=== PATIENT | male | born 1995 | race Caucasian/White ===

== ENCOUNTER 2018-07-14 11:16 | Emergency (ER) | payer MEDICAID, SELFPAY ==
[2018-07-14 11:18] VITALS: BP 110/69; PULSE 85; RESP 17; TEMP 36.9; O2SAT 94; BMI 30.3
--- NOTE | 2018-07-14 12:06 | ED.VISSUMM ---
- ER Visit Summary Date of Service: 07/14/18 Chief Complaint: [] Suicidal ideation, history of bilateral lung transplant about 5 years ago at [facility] History of Present Illness: The patient is a 23 M [] is presenting complaining with family of suicidal ideation he wants to jump off a bridge or cut his throat. 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 He has a long history of depression and PTSD and suicidal thoughts he recently stopped taking all of his antidepressive meds because they were not helping, he seen by local counselors for his psychiatric disorder, and he seen by [facility] transplant pulmonary service. The [facility] transplant pulmonary service is content with his status The patient had persistent expressions of suicidal ideation today related to being sensing self worthlessness no joint his life consisting of wanting to either jump off a bridge cut his throat and otherwise harm himself and he was brought to the hospital for evaluation, he has a history of self-inflicted wounds he has not inflicted anything on himself, he has not taken any medications, he has no history of drug or alcohol use He has no complaints other than suicidal ideation Physical Examination: [] His vital signs are within normal range she is in no distress the anterior chest incisions are intact his heart tones are normal the lungs sound clear the abdomen soft nontender he is awake and alert he is moving all 4 extremities he has no psychomotor agitation other than to insist that he still feels suicidal there is no delirium or delusions he is cooperative he does feel anxious, he also reports per family that he has difficulty sleeping recently Family also reports he has an explosive violent tendency when he gets very anxious and nervous but he has not manifested that behavior in the ED yet Test Results: [] Emergency Department Course and Treatment: [] In all the above screening labs will be obtained Ativan 2 mg p.o. to help him relax and he will be seen by mental health services for further management Treatment Plan: [] Disposition: [] Impression: [] This note was generated with [employer] software. It may contain incorrect words, spelling, and punctuation that were not noted in review of the chart prior to signing ED Disposition - Plan for ED Patient: Chief Complaint: Suicidal Referrals: Tha Vogt MD [Primary Care Provider] -
--- NOTE | 2018-07-14 12:09 | ED.DCSUM_ITS ---
- ER Visit Summary Date of Service: 07/14/18 Chief Complaint: [] Suicidal ideation, history of bilateral lung transplant about 5 years ago at [facility] History of Present Illness: The patient is a 23 M [] is presenting complaining with family of suicidal ideation he wants to jump off a bridge or cut his throat. 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 He has a long history of depression and PTSD and suicidal thoughts he recently stopped taking all of his antidepressive meds because they were not helping, he seen by local counselors for his psychiatric disorder, and he seen by [facility] transplant pulmonary service. The [facility] transplant pulmonary service is content with his status The patient had persistent expressions of suicidal ideation today related to being sensing self worthlessness no joint his life consisting of wanting to either jump off a bridge cut his throat and otherwise harm himself and he was brought to the hospital for evaluation, he has a history of self-inflicted wounds he has not inflicted anything on himself, he has not taken any medications, he has no history of drug or alcohol use He has no complaints other than suicidal ideation Physical Examination: [] His vital signs are within normal range she is in no distress the anterior chest incisions are intact his heart tones are normal the lungs sound clear the abdomen soft nontender he is awake and alert he is moving all 4 extremities he has no psychomotor agitation other than to insist that he still feels suicidal there is no delirium or delusions he is cooperative he does feel anxious, he also reports per family that he has difficulty sleeping recently Family also reports he has an explosive violent tendency when he gets very anxious and nervous but he has not manifested that behavior in the ED yet Test Results: [] Emergency Department Course and Treatment: [] In all the above screening labs will be obtained Ativan 2 mg p.o. to help him relax and he will be seen by mental health services for further management Treatment Plan: [] Disposition: [] Impression: [] This note was generated with [employer] software. It may contain incorrect words, spelling, and punctuation that were not noted in review of the chart prior to signing ED Disposition - Plan for ED Patient: Chief Complaint: Suicidal Referrals: Tha Vogt MD [Primary Care Provider] -
[2018-07-14] MEDS: LORazepam 1 MG Tablet 2 MG PO (12:33)
[2018-07-14 12:36] VITALS: BP 133/81; PULSE 89; RESP 18; O2SAT 97
[2018-07-14 12:57] LABS: Absolute Lymphocyte Count 1.94 X10^3/ul (0.83-4.51); Absolute Neutrophil Count 6.8 X10^3/uL (2.0-7.7); Basophil# 0.06 X10^3/uL; Basophil% 0.6 % (0-1); Eosinophil# 0.88 X10^3/uL; Eosinophils% 8.3 % (0-5); Hematocrit 47.7 % (40-54); Hemoglobin 15.8 g/dl (13.0-16.5); Lymphocyte # 1.94 X10^3/ul (4.0); Lymphocyte % 18.2 % (19-41); Mean Corp Hgb Conc 33.1 g/gl (32-36); Mean Corpuscular Hgb 28.4 pg (27.0-32.0); Mean Corpuscular Volume 85.6 fL (80-94); Mean Platelet Vol. 9.2 fl (6.2-12.0); Monocyte# 0.97 X10^3/uL; Monocyte% 9.1 % (0-10); Neutrophil % 63.7 % (47-70); Platelet Count 350 K/mm3 (150-450); RBC Distribution Width CV 12.5 % (11.6-14.6); RBC Distribution Width SD 38.9 fl (35.1-43.9); Red Blood Count 5.57 M/mm3 (4.6-6.2); White Blood Count 10.7 K/mm3 (4.4-11.0)
[2018-07-14 12:58] LABS: POSITIVE COUNT NO; POSITIVE DIFFERENTIAL NO; POSITIVE MORPHOLOGY NO
[2018-07-14 13:01] LABS: Anion Gap 7 (5-15); BUN 8 mg/dL (7-18); BUN/Creat Ratio 8.4 RATIO (10-20); Calcium,Total 9.2 mg/dL (8.5-10.1); Chloride 102 mmol/L (98-107); Creatinine, Serum 0.96 mg/dL (0.70-1.30); EST Glomerular Filtration Rate 102 mL/min (>60); Est Glom Filt Rate - Afr Amer 124 mL/min (>60); Estimated Creatinine Clearance 110.93 ml/min; Glucose 91 mg/dL (74-106); Sodium Level 139 mmol/L (136-145)
[2018-07-14 13:04] LABS: Amphetamine Urine VISTA NEGATIVE (<1000 ng/mL); Barbiturate Urine VISTA NEGATIVE (< 200 ng/mL); Benzodiazepine Urine VISTA NEGATIVE (< 200 ng/mL); Cocaine Urine VISTA NEGATIVE (< 300 ng/mL); Ecstacy Urine VISTA NEGATIVE (< 500 ng/mL); Methadone Urine VISTA NEGATIVE (< 300 ng/mL); PCP Urine VISTA NEGATIVE (< 25 ng/mL); THC Urine VISTA NEGATIVE (< 50 ng/mL); Vista UDS pH Range 6
[2018-07-14 14:05] LABS: Alcohol, Blood (Medical)-Serum < 3.0 mg/dL
--- NOTE | 2018-07-14 14:42 | ED.RN ---
1:1 sitter placed at bedside starting at 1200. Pt family and girlfriend at bedside. Denies needs. will continue to monitor.
[2018-07-14 15:28] VITALS: BP 121/81; PULSE 90; RESP 18; O2SAT 97
--- NOTE | 2018-07-14 18:01 | ED.DEP ---
ED Disposition - Plan for ED Patient: Chief Complaint: Suicidal Instructions: ED Depression Referrals: Tha Vogt MD [Primary Care Provider] - Counseling,Center [GROUP OF PHYSICIANS] -
[2018-07-14] MEDS: LORazepam 1 MG Tablet PO (18:50)
[2018-07-14] MEDS: Ziprasidone IM 20 MG/ML VIAL 10 MG IM (19:38)
--- NOTE | 2018-07-14 19:40 | ED.RN ---
PT AGREED TO TAKE GEODON TO HELP HIM RELAX AND DECREASE ANXIETY
[2018-07-14 20:25] VITALS: BP 121/83; PULSE 77; RESP 16; O2SAT 98
--- NOTE | 2018-07-14 20:27 | NURSING ---
PT VERBALLY DE-ESCALATED IN ROOM WITHOUT NEED FOR RESTRAINTS. GIRLFRIEND AT BEDSIDE. MEDICATION GIVEN TO ASSIST PATIENT IN CALMING HIMSELF DOWN. PT AGREED TO MEDICATION. PT IS RESTING IN BED EYES CLOSED. GIRLFRIEND AND SITTER AT BEDSIDE. Hayden LEAVITT RN.
--- NOTE | 2018-07-14 21:38 | ED.RN ---
CALLED TO TRANSPORT THIS PT TO [facility], UNABLE TO SECRUE A SQUAD FOR TRANSPORT TILL MORNING
[2018-07-14 22:50] VITALS: BP 113/75; PULSE 90; RESP 16; O2SAT 95
[2018-07-14 23:00] VITALS: RESP 17; O2SAT 99
[2018-07-15] VITALS (8 sets, daily range): BP systolic 125–149; BP diastolic 80–92; PULSE 65–67; RESP 13–17; O2SAT 95–99
--- NOTE | 2018-07-15 | ED.RN ---
PATIENT APPEARS TO BE SLEEPING AT THIS TIME. SITTER AT BEDSIDE CONTINUOUSLY. SIGNIFICANT OTHER AT BEDSIDE.
[2018-07-15] MEDS: predniSONE 5 MG Tablet PO (00:56)
[2018-07-15] MEDS: MYCOPHENOLATE SODIUM 180 MG TABLET.DR 540 MG PO (00:57)
--- NOTE | 2018-07-15 01:19 | ED.RN ---
PATIENT APPEARED TO BE SLEEPING, BUT THIS NURSE AWOKE PATIENT TO TAKE VITALS. PT COOPERATED EASILY. PT THEN AGREED TO TAKE MEDICATION AND TOOK THEM WITHOUT DIFFICULTY. PT ALSO OFFERED WATER TO DRINK. PT APPEARED TO GO BACK TO SLEEP. SIGNIFICANT OTHER REMAINS AT BEDSIDE AND PLANS TO DO SO ALL NIGHT. MOTHER IS IN WAITING ROOM AND PLANS TO STAY THERE ALL NIGHT. RN AT BEDSIDE TO CONTINUOUSLY OBSERVE PATIENT.
--- NOTE | 2018-07-15 02:20 | ED.RN ---
PATIENT APPEARS TO BE SLEEPING WITHOUT DISTRESS. PT CONTINUES TO BE OBSERVED CONTINUOUSLY BY RN/SITTER AT BEDSIDE. FAMILY AND SIGNIFICANT OTHER AT BEDSIDE.
== END 2018-07-15 08:30 ==
LOC: ED 13:42
PROVIDERS: Emergency Provider Emergency Medicine; Family Provider Family Medicine; PCP Family Medicine
DX: R45.851 Suicidal ideations (principal); Z94.2 Lung transplant status; F32.9 Major depressive disorder, single episode, unspecified; F43.10 Post-traumatic stress disorder, unspecified; Z79.899 Other long term (current) drug therapy
CPT/HCPCS: 36415; 80048; 80307; 80320; 85025; 96372; 99285; G0480; J3486

== ENCOUNTER → 2019-03-03 13:03 | Outpatient (CLI) | payer MEDICAID, SELFPAY ==
[2019-03-03 07:29] VITALS: BMI 32.8
--- NOTE | 2019-03-03 07:30 | VAS_PTH ---
PATIENT: QUINN MEDINA LOC: [facility] U#:[id number] AGE/SX: 30/M ROOM: RE03/03/[address]: Dr. Ken Ruiz MD : 1995 BED: DIS: SPEC #: [id number] RECD: 03/03/19 12:07 STATUS: ANDRES LUKAS #: [id number] AMBIKA: 03/03/19 07:[address]: Ken Ruiz DEPT: SURGICAL PATHOLOGY RECD BY: Delmer Munoz ENTERED: 03/03/19 13:30 SP TYPE: VAS OTHR DR: Dr. Tha Vogt MD Tissues: A - Vas deferens, NOS B - Vas deferens, NOS Procedures: Surgery Specimen Level II HEADER OPERATION: Bilateral partial vasectomy PRE-OP DIAGNOSIS: Sterilization TISSUE SUBMITTED: A - Right partial vas deferens, B - Left partial vas deferens MICROSCOPIC DIAGNOSIS A. Right partial vas deferens, segmental vasectomy: Complete cross-section of vas deferens with no pathologic change. B. Left partial vas deferens, segmental vasectomy: Complete cross-section of vas deferens with no pathologic change. AM:moises 03/04/19 MICROSCOPIC DESCRIPTION Slides are reviewed. GROSS DESCRIPTION A - Received is one container designated right vas deferens. The specimen consists of a tubular segment of carrion soft tissue measuring 1.3 cm in length and 0.3 cm in maximum diameter. The specimen is serially sectioned and totally submitted in one cassette. The specimen will be sectioned at the time of embedding. B - Received is one container designated left vas deferens. The specimen consists of a tubular segment of carrion soft tissue measuring 1.3 cm in length and 0.3 cm in maximum diameter. The specimen is serially sectioned and totally submitted in one cassette. The specimen will be sectioned at the time of embedding. / SJ:moises 03/03/19 TC:4 CPT: 04455 x2
== END ==
PROVIDERS: Family Provider Family Medicine; PCP Family Medicine; Referring Provider Surgery; Visit Provider Surgery
DX: Z30.2 Encounter for sterilization (principal)
CPT/HCPCS: 88302

== ENCOUNTER → 2019-04-29 12:35 | Outpatient (CLI) | payer MEDICAID, SELFPAY ==
[2019-03-03 07:29] VITALS: BMI 32.8
[2019-04-30 13:50] LABS: Semen Analysis Post Vas ABSENT
== END ==
PROVIDERS: Family Provider Family Medicine; PCP Family Medicine; Referring Provider Surgery; Visit Provider Surgery
DX: Z30.2 Encounter for sterilization (principal)
CPT/HCPCS: 89321

== ENCOUNTER 2019-07-03 18:33 | Emergency (ER) | payer MEDICAID, SELFPAY ==
[2019-03-03 07:29] VITALS: BMI 32.8
[2019-07-03 18:35] VITALS: BP 126/90; PULSE 98; RESP 16; TEMP 36.8; O2SAT 95; BMI 32.4
--- NOTE | 2019-07-03 19:13 | EKG12_ITS ---
Test Reason : MENTAL HEALTH Blood Pressure : / mmHG Vent. Rate : 096 BPM Atrial Rate : 096 BPM P-R Int : 188 ms QRS Dur : 100 ms QT Int : 366 ms P-R-T Axes : 054 067 077 degrees QTc Int : 462 ms Normal sinus rhythm Early repolarization Normal ECG Confirmed by MEJIA PERALTA, ARCHIE ([id number]), desk editor CARROLL FRANCISCO ([id number]) on 07/14/2019 9:20:32 A M Referred By: NICHELLE Confirmed By:LUIS MIGUEL BA MD
--- NOTE | 2019-07-03 19:15 | ED.VIS.GEN ---
History of Present Illness Chief Complaint: Suicidal Informant: Patient Onset: Days Narrative: Patient is a 24-year-old male history of bipolar disorder and double lung transplant presenting with suicidal ideations. Patient states for the past few weeks he has had thoughts of wanting to hang himself. He states he has a wire that he was to use but he is concerned that it will not hold his body weight. Today he was in an argument with his girlfriend and then with his mother. He states that pushed him over the edge and then he punched a wall 4 times with his right hand. He states he feels more angry and still wants to kill himself. Any history of suicide attempts. He does have a history of cutting. He notes that he is on Lamictal but not sure if it is the right dose. He states he was an inpatient psych about a year ago. Patient also states he has a 6-month-old daughter at home. He states he does not want to hurt her but is afraid he might. Patient denies any physical complaints at this time. Past Medical History - Allergies and Home Meds Allergies/Adverse Reactions: Allergies No Known Allergies Allergy (Verified 03/25/19 07:51) Primary Care Physician: Tha Vogt MD [Primary Care Provider] - Past Medical History: - - Bipolar disorder Surgical History: - - Bilateral lung transplant Lives: Spouse/ Significant Other Smoking Status: Current every day smoker Review of Systems All systems negative except as indicated Psych: Reports: Depression, Suicidal thoughts, Suicidal ideations Physical Exam Vital Signs/Narrative: Vital Signs Temp Pulse Resp BP Pulse Ox 07/03/19 18:35 98.2 F 98 16 126/90 H 95 Inital Vital Signs reviewed: Yes General: Well nourished, Well developed, No Acute Distress, - - Patient tearful and pacing around the room Head: Normocephalic, Atraumatic Eyes: Perrl, EOMI ENT: Moist mucous membranes, No rhinorrhea Neck: Supple, Nontender Cardiovascular: Regular rate, Regular rhythm, No murmurs Respiratory: No distress, CTA bilaterally, Chest nontender Abdomen: Soft, Nontender, Nondistended, Normal bowel sounds Back: Nontender, Normal Inspection Extremities: Nontender, No edema, - - Erythema over the MCPs of the right hand but no associated deformity or bony tenderness Skin: Normal color, No rash Neurological: Alert, Oriented x3, Cranial nerves II-XII grossly intact, Normal Strength, Normal Sensation Psychological: Depressed, Tearful, Agitated, - - Admits to suicidal ideations with plan Diagnostic/Tx/Re-eval Laboratory Results - last 24 hr 07/03/19 07/03/19 07/03/19 19:35 19:35 19:35 WBC 7.5 RBC 5.27 Hgb 14.6 Hct 45.0 MCV 85.4 MCH 27.7 MCHC 32.4 RDW Std Deviation 37.2 RDW Coeff of Elijah 12.0 Plt Count 349 MPV 8.6 Immature Gran % (Auto) 0.400 Neut % (Auto) 62.0 Lymph % (Auto) 21.0 [place] % (Auto) 12.2 H Eos % (Auto) 3.6 Baso % (Auto) 0.8 Absolute Neuts (auto) 4.6 Absolute Lymphs (auto) 1.57 Nucleated RBC % 0 Sodium 143 Potassium 3.9 Chloride 107 Carbon Dioxide 28.0 Anion Gap 8 BUN 10 Creatinine 1.15 Estim Creat Clear Calc 88.61 Est GFR (MDRD) Af Amer 100 Est GFR (MDRD) Non-Af 82 BUN/Creatinine Ratio 8.7 L Glucose 96 Calcium 8.5 Urine Opiates Screen Urine Methadone Screen Ur Barbiturates Screen Ur Phencyclidine Scrn Ur Amphetamines Screen U Methamphetamin-MDMA U Benzodiazepines Scrn Urine Cocaine Screen U Cannabinoids Screen Ur Drug Screen Comment Ethyl Alcohol < 3.0 07/03/19 20:00 WBC RBC Hgb Hct MCV MCH MCHC RDW Std Deviation RDW Coeff of Elijah Plt Count MPV Immature Gran % (Auto) Neut % (Auto) Lymph % (Auto) [place] % (Auto) Eos % (Auto) Baso % (Auto) Absolute Neuts (auto) Absolute Lymphs (auto) Nucleated RBC % Sodium Potassium Chloride Carbon Dioxide Anion Gap BUN Creatinine Estim Creat Clear Calc Est GFR (MDRD) Af Amer Est GFR (MDRD) Non-Af BUN/Creatinine Ratio Glucose Calcium Urine Opiates Screen NEGATIVE Urine Methadone Screen NEGATIVE Ur Barbiturates Screen NEGATIVE Ur Phencyclidine Scrn NEGATIVE Ur Amphetamines Screen NEGATIVE U Methamphetamin-MDMA POSITIVE H U Benzodiazepines Scrn NEGATIVE Urine Cocaine Screen NEGATIVE U Cannabinoids Screen NEGATIVE Ur Drug Screen Comment Ethyl Alcohol - Rhythm Strip Rhythm Strip: Sinus Rhythm Rate: 96 Ectopy: None - EKG Initial EKG Interpretation: Sinus Rhythm, - - Rate of 96 Normal intervals Early repolarization Normal EKG - Medical Decision Making Patient is evaluated for agitation and suicidal ideation. He has no physical complaints. He states that he is been having suicidal ideations for the past 3 weeks and has a plan. He tells me the only reason he has not acted on it is because he is afraid the wire he wants to hang himself on might not support his weight. Patient is given oral Geodon for his agitation which is quite effective. Patient's mother does come to verify his medications and give him his antirejection medications. [place] slip is filled out as I feel that patient needs further inpatient psychiatric evaluation. Patient is evaluated for crisis and is pending psychiatric placement once available. Patient is medically cleared. He is instantly found to have a drug screen positive for MDMA. Patient denies drug use however he could be lying versus false positive/medication cross-reactivity. Regardless he still cleared medically. ED Disposition - Plan for ED Patient: Diagnosis: Suicidal ideation Referrals: Tha Vogt MD [Primary Care Provider] -
[2019-07-03] MEDS: Ziprasidone HCl 20 MG Capsule PO (19:26)
[2019-07-03 19:34] VITALS: RESP 20
[2019-07-03 19:49] LABS: Absolute Lymphocyte Count 1.57 X10^3/uL (0.83-4.51); Absolute Neutrophil Count 4.6 X10^3/uL (2.0-7.7); Basophil# 0.06 X10^3/uL; Basophil% 0.8 % (0-1); Eosinophil# 0.27 X10^3/uL; Eosinophils% 3.6 % (0-5); Hemoglobin 14.6 g/dL (13.0-16.5); Lymphocyte # 1.57 X10^3/ul (4.0); Mean Corp Hgb Conc 32.4 g/dL (32-36); Mean Corpuscular Hgb 27.7 pg (27.0-32.0); Mean Corpuscular Volume 85.4 fL (80-94); Mean Platelet Vol. 8.6 fl (6.2-12.0); Monocyte# 0.91 X10^3/uL; Monocyte% 12.2 % (0-10); NRBC Flagged by Analyzer 0 % (0-5); Neutrophil # 4.63 X10^3/uL (2.7-7.7); Platelet Count 349 K/mm3 (150-450); RBC Distribution Width SD 37.2 fl (35.1-43.9); Red Blood Count 5.27 M/mm3 (4.6-6.2); White Blood Count 7.5 K/mm3 (4.4-11.0)
[2019-07-03 20:00] VITALS: RESP 18
[2019-07-03 20:06] LABS: Anion Gap 8 (5-15); BUN 10 mg/dL (7-18); BUN/Creat Ratio 8.7 RATIO (10-20); Calcium,Total 8.5 mg/dL (8.5-10.1); Chloride 107 mmol/L (98-107); Creatinine, Serum 1.15 mg/dL (0.70-1.30); EST Glomerular Filtration Rate 82 mL/min (>60); Est Glom Filt Rate - Afr Amer 100 mL/min (>60); Estimated Creatinine Clearance 88.61 ml/min; Glucose 96 mg/dL (74-106); Potassium 3.9 mmol/L (3.5-5.1); Sodium Level 143 mmol/L (136-145)
[2019-07-03 20:27] LABS: Amphetamine Urine VISTA NEGATIVE (<1000 ng/mL); Barbiturate Urine VISTA NEGATIVE (< 200 ng/mL); Benzodiazepine Urine VISTA NEGATIVE (< 200 ng/mL); Cocaine Urine VISTA NEGATIVE (< 300 ng/mL); Ecstacy Urine VISTA POSITIVE (< 500 ng/mL); Methadone Urine VISTA NEGATIVE (< 300 ng/mL); PCP Urine VISTA NEGATIVE (< 25 ng/mL); THC Urine VISTA NEGATIVE (< 50 ng/mL); Vista UDS pH Range 6
[2019-07-03 20:27] LABS: Alcohol, Blood (Medical)-Serum < 3.0 mg/dL
--- NOTE | 2019-07-03 20:53 | NURSING ---
CALLED CRISIS AT [phone]
[2019-07-03 21:00] VITALS: RESP 16
--- NOTE | 2019-07-03 21:18 | ED.RN ---
OK PER TO GIVE HOME MEDICATION ANTI-REJECTION MEDICATIONS. MYCOPHENOLATE SODIUM-540 MG AND TACROLIMUS 3MG GIVEN. PILLS WERE IN ORIGINAL PHARMACY BOTTLES.
[2019-07-03 22:00] VITALS: PULSE 18
[2019-07-03 23:00] VITALS: BP 115/70; PULSE 80; RESP 14; O2SAT 95
[2019-07-04] VITALS (8 sets, daily range): BP systolic 110–129; BP diastolic 66–84; PULSE 73–80; RESP 14–18; O2SAT 94–100
[2019-07-04] MEDS: traZODone 50 MG Tablet 150 MG PO (00:16)
[2019-07-04] MEDS: ARIPiprazole 5 MG Tablet PO (00:16)
[2019-07-04] MEDS: Sertraline 50 MG Tablet 150 MG PO (00:16)
--- NOTE | 2019-07-04 06:30 | ED.RN ---
dannie from crisis called. She is having a hard time placing patient at this time due to patient having transplant. Patient is on waiting list at [facility]. [facility] has no beds at this time. Crisis working on trying to find placement
--- NOTE | 2019-07-04 07:58 | NURSING ---
DELFINA OCHOA, CALLED. SHE HAS SENT PAPERWORK TO [facility]
[2019-07-04] MEDS: predniSONE 5 MG Tablet PO (08:03)
[2019-07-04] MEDS: lamoTRIgine 150 MG Tablet PO (09:14)
[2019-07-04] MEDS: MYCOPHENOLATE SODIUM 180 MG TABLET.DR 540 MG PO (09:15)
[2019-07-04] MEDS: Tacrolimus Anhydrous 1 MG Capsule 3 MG PO (09:15)
--- NOTE | 2019-07-04 10:42 | NURSING ---
ACCEPTED AT [facility]
[2019-07-07 13:10] LABS: Tacrolimus (FK506) 5.9 ng/mL (2.0-20.0)
[2019-07-07 13:11] LABS: Lamotrigine (Lamictal) Level 3.5 ug/mL (2.0-20.0)
== END 2019-07-04 12:33 ==
LOC: ED 19:22
PROVIDERS: Emergency Provider Emergency Medicine; Family Provider Family Medicine; PCP Family Medicine
DX: R45.851 Suicidal ideations (principal); F31.9 Bipolar disorder, unspecified; F17.200 Nicotine dependence, unspecified, uncomplicated; Z91.5 Personal history of self-harm; Z94.2 Lung transplant status
CPT/HCPCS: 80048; 80197; 80307; 80320; 82542; 85025; 93005; 99285; G0480

== ENCOUNTER → 2020-04-20 08:20 | Outpatient (CLI) | payer MEDICAID, SELFPAY | PROVIDERS: PCP Family Medicine | DX: Z94.2 Lung transplant status (principal) | CPT/HCPCS: 99211; A4216; G0463 ==